=== PATIENT | male | born 1965 | race African-American/Black ===

== ENCOUNTER 2017-12-14 20:02 | Emergency (ER) | payer SELFPAY ==
[~2017-12-14] VITALS: Ht 185.4 cm; Wt 97.5 kg
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
[2017-12-14] MEDS ORDERED: ACETAMINOPHEN ES 500 MG TABLET ONE (21:30)
[2017-12-14] MEDS ORDERED: ACETAMINOPHEN ES 500 MG TABLET PO ONE (21:30)
--- NOTE | 2017-12-14 21:50 | NUR ---
RADIOLOGY BEDSIDE FOR X-RAY
[2017-12-14] MEDS ORDERED: MORPHINE SULFATE INJ 4 MG/ML DISP.SYRIN ONE (22:06)
[2017-12-14] MEDS ORDERED: HYDROMORPHONE INJ 2 MG/ML DISP.SYRIN IV ONE (22:30)
[2017-12-14] MEDS ORDERED: ONDANSETRON HCL/PF 4 MG/2 ML VIAL IVP ONE (22:30)
[2017-12-14] MEDS ORDERED: MORPHINE SULFATE INJ 2 MG/ML DISP.SYRIN IM ONE (22:30)
[2017-12-14] MEDS ORDERED: IV NS 0.9% 1,000 ML BAG IV ONE (22:30)
[2017-12-14] MEDS ORDERED: HYDROMORPHONE 1 MG/1 ML DISP.SYRIN ONE (22:35)
[2017-12-14] MEDS ORDERED: ONDANSETRON HCL/PF 4 MG/2 ML VIAL ONE (22:35)
[2017-12-14] MEDS ORDERED: PROPOFOL 20 ML IV ONE (23:46)
[2017-12-14] MEDS ORDERED: KETAMINE HCL (500MG/10ML) 50 MG/ML VIAL ONE (23:48)
[2017-12-15] MEDS ORDERED: PROPOFOL 200 MG/20 ML VIAL IV ONE
[2017-12-15] MEDS ORDERED: KETAMINE HCL (500MG/10ML) 50 MG/ML VIAL IV ONE
--- NOTE | 2017-12-15 00:01 | NUR ---
CONSENT SIGNED FOR MODERATE SEDATION BY PT AND PROCEDURE EXPLAINED BY
--- NOTE | 2017-12-15 00:16 | NUR ---
TIME OUT PERFORMED PRIOR TO MODERATE SEDATION WITH MD BEASLEY, RT KAMRON, EMT GABBY.
--- NOTE | 2017-12-15 00:35 | NUR ---
MODERATE SEDATION PERFORMED BY DR BEASLEY
--- NOTE | 2017-12-15 01:25 | NUR ---
Patient discharged to home in stable condition. Written and verbal after care instructions given. Patient verbalizes understanding of instruction.IV removed. Catheter intact and site benign. Pressure and 4x4 applied to site. No bleeding noted. PT AMBULATED WITH STEADY GAIT NOTED AND ASSISTAED BY
[2017-12-15 01:26] VITALS: BP 157/76
== END 2017-12-15 01:27 | disposition home or self-care (01) ==
LOC: ER 20:02
DX: S43.024A Posterior dislocation of right humerus, initial encounter (principal); Z60.2 Problems related to living alone; V43.52XA Car driver injured in collision with other type car in traffic accident, initial encounter; Y93.89 Activity, other specified; Y92.410 Unspecified street and highway as the place of occurrence of the external cause; Y99.8 Other external cause status
CPT/HCPCS: 73030-TC; 73200-TC; A4606; J1170; J2270; J2405; J2704; J3490; J7030; Z7610